=== PATIENT | male | born 1965 | race Caucasian/White ===

== ENCOUNTER 2024-11-04 08:00 | Outpatient (RCR) | payer BC, SELFPAY ==
[2024-10-21 08:25] VITALS: BP 117/55; PULSE 59; RESP 18; TEMP 36.1; BMI 32.1
--- NOTE | 2024-10-21 09:43 | PCM.WC.HP ---
History of Present Illness Date of Service: 10/21/24 Chief Complaint: Follow-up right ring finger appears infected History of Wound: 59-year-old white male with a history of concern of infection in his right fourth finger. He was working on remodeling a bathroom and received a small abrasion to the dorsal surface about 3 weeks prior to his first visit to his doctor's office so that would take him back to the end of July 2024 his first visit with his family doctor was 09/14/2024 he noticed an increase in redness pain and swelling he had been applying triple antibiotic ointment which had been effective there has been some improvement at that time and symptoms but still had some mild intermittent tenderness to the affected area and is concerned about infection he denied ever having any discharge and denies any associated fever. He followed up with his primary care doctor again on 10/08/2024 and at that time patient was still complaining of cellulitis to the right ring finger and it had been well over a month now and he and after he scraped it while remodeling it just was not getting any better so they were given Bactroban ointment which was effective but the last several weeks then it increased in redness he still denied any fever or pain and this was back and forth so the doctor started him on doxycycline twice a day for 10 days. He followed up again on 10/15/2024 and it also not significantly worsened either no cultures were ever obtained he never really had any drainage at that time but it has been 4 months and it is not any better so he decided to send him to the wound center. [facility] Home Medications ?Medication ?Instructions ?Recorded ?Last Taken ?Type hydrochlorothiazide 25 mg tablet 25 mg PO DAILY 10/21/24 Unknown History losartan 25 mg tablet (Cozaar) 25 mg PO DAILY 10/21/24 Unknown History metoprolol tartrate 25 mg tablet 25 mg PO BID 10/21/24 Unknown History simvastatin 10 mg tablet 10 mg PO QPM 10/21/24 Unknown History warfarin 2.5 mg tablet (Jantoven) 2.5 mg PO DAILY 10/21/24 Unknown History Social History Smoking Status: Never smoker ROS Constitutional Constitutional: Reports systems reviewed and no addt'l complaints, except as documented Eyes Eyes: Reports systems reviewed and no addt'l complaints, except as documented ENT HEENT: Reports systems reviewed and no addt'l complaints, except as documented Cardiovascular Cardiovascular: Reports systems reviewed and no addt'l complaints, except as documented Respiratory/Chest Respiratory/Chest: Reports systems reviewed and no addt'l complaints, except as documented Gastrointestinal Gastrointestinal: Reports systems reviewed and no addt'l complaints, except as documented Genitourinary Genitourinary: Reports systems reviewed and no addt'l complaints, except as documented Musculoskeletal Musculoskeletal: Reports systems reviewed and no addt'l complaints, except as documented Integumentary Integumentary: Reports wounds and other Details: Right ring finger 3 linear open areas with erythema around them also noted erythema on knuckles and lower half of dorsal hand. Neurologic Neurologic: Reports systems reviewed and no addt'l complaints, except as documented Psychiatric Psychiatric: Reports systems reviewed and no addt'l complaints, except as documented Endocrine Endocrinology: Reports systems reviewed and no addt'l complaints, except as documented Hematologic/Lymphatic Hematologic/Lymphatic: Reports systems reviewed and no addt'l complaints, except as documented Allergic/Immunologic Allergic/Immunologic: Reports systems reviewed and no addt'l complaints, except as documented Vital Signs Vital Signs Vital Signs: 10/21/24 08:25 Temperature 97 F L Temperature Source Temporal Pulse Rate 59 L Respiratory Rate 18 Blood Pressure 117/55 L Blood Pressure Mean 75 Blood Pressure Source Monitor Weight Weight: 250 lb 2.49 oz Body Mass Index (BMI) 32.1 Physical Exam Const alert, oriented x3 and no apparent distress General Appearance: cooperative, comfortable and well kempt Orientation / Consciousness: awake Exam Limitations: no limitations HEENT normocephalic Head and Scalp: normal to inspection Face and Sinus: normal facial exam Nose: external nose normal External Ear: external ears normal Eyes General Eye: normal appearance of both eyes Neck full ROM General: normal visual inspection Resp normal respiratory effort Effort and Inspection: able to speak in complete sentences Auscultation: clear to auscultation bilaterally Cardio regular rate Rate: regular rate Rhythm: regular rhythm Heart Sounds: S1 normal Bruits: Negative for carotid bruit GI normal to inspection, nondistended, normoactive bowel sounds Back/Spine normal ROM Extremity normal to inspection General Extremity: normal exam except as noted Skin Skin Narrative: 3 linear open small wounds on right ring finger with erythema around them. Erythema up into the lower half of right hand and knuckles dorsal side. Full range of motion able to make a fist. Has resistance to pressure on the right ring finger. Wounds appear superficial. Neuro oriented x3 Meningeal Signs: no meningeal signs Psych mental status grossly normal Appearance: grossly normal Attitude: calm Activity / Motor Behavior: appropriate eye contact Speech: normal speech Mood & Affect: euthymic mood Thought Process: normal thought process Thought Content: normal thought content Attention / Concentration: attention grossly intact Memory / Cognition: memory grossly intact Insight: insight good Judgement: judgement good Debridement Note Debridement Note Wound debrided: Right ring finger Type of Debridement: Excisional debridement Anesthesia Used: 5% Lidocaine Gel Depth: Down to and including healthy tissue and in the subcutaneous layer Percentage of wound debrided: 100 Instrument Used: 3mm curette Tissue Removed: Devitalized tissue and fibrin Severity: Limited To Skin Breakdown Amount of bleeding with debridement: Mild Bleeding Controlled with: Compression and gauze Patient tolerated procedure: Patient tolerated procedure well Post-Debridement Measurements and Additional Note: Post-Debridement Measurements/Treatment - Nurse 1 - General Ulcer Assessment Start: 10/21/24 08:23 Freq: Status: Active Protocol: [email or web address] Activity Type Activity Date Activity User E-sign Co-sign Detail Recorded Client Recorded Date Recorded By Document 10/21/24 08:25 DL [id number] 10/21/24 08:35 DL 10/21/24 08:25 - Today's Visit Information Type of service Initial Visit Arrival Mode Ambulatory Transfer Assistance None Patient Identification Verified (Name & Yes ) Patient Requires Transmission-Based No Precautions Height and Weight Height 6 ft 2 in Weight 250 lb 2.49 oz Weight in Pounds 250.2 lbs Weight Measurement Method Estimated by Patient Body Mass Index (BMI) 32.1 BMI Classification Obese Vital Signs Temperature (97.8 F-99.1 F) 97 F L Temperature Source Temporal Pulse Rate (60-100) 59 L Pulse Location Monitor Respiratory Rate (12-18) 18 Respiratory rate source Observation Blood Pressure (90/60-120/80) 117/55 L Blood Pressure Mean 75 Source Monitor Pain Scale: 0-10 Numeric Is Patient Pain Free? Yes Communication Assessment Preferred language Kyrgyz Able to Read Yes Able to Write Yes Communication Tools None Right Hearing Abillity Use of Hearing Aid Left Hearing Abillity Use of Hearing Aid Visual Assistive Devices Glasses Teaching Assessment Preferences Verbal,Written, Demonstration Barriers to Learning None Readiness To Learn Good Willingness to Engage in Self Management Med Activies Readiness to Engage in Self Management Med Activities Anxiety Level Calm Cooperation Cooperative Perception Coherent Interest in Health Problem Asks Questions Education Importance Acknowledges Need Does Patient Smoke tobacco or other No substances Smoking Status Never smoker Is Patient Diabetic No Functional Assessment Recent Decline in Ability to Perform Denies Any Declines 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 Bench Jeweler to contact place of adventism No WC - Nurse 1 - General Ulcer Measurement Start: 10/21/24 08:23 Freq: Status: Active Protocol: Activity Type Activity Date Activity User E-sign Co-sign Detail Recorded Client Recorded Date Recorded By Document 10/21/24 08:25 DL [id number] 10/21/24 08:35 DL 10/21/24 08:25 Wound Center Nurse 1 #1 R 3rd finger -Current Size (cm) - Length 0.5 -Current Size (cm) - Width 1.8 -Current Size (cm) - Depth 0.1 -Total Square Cm 0.90 -Photo Taken Yes -Exudate Amt None Present -Wound Margin Distinct, Outline Attached -Granulation Amt None Present (0 %) -Necrosis Amt Small (1-33%) -Necrotic Tissue Type Eschar -Structure Exposed N/A -Texture (Melly-wound Skin Appearance) Localized Edema ,Scarring -Moisture (Melly-wound Skin Appearance) No Abnormality -Color (Melly-wound Skin Appearance) Erythema -Temperature (Melly-wound Skin No Abnormality Appearance) (Pt Warm) -Tenderness on Palpation (Melly-wound No Skin Appearance) -Ulcer Cleansing Soap and Water -Foul Odor after Cleansing No -Anesthetic Used 5% Lidocaine Gel WC - Nurse 2 - General Ulcer CM Notes Start: 10/21/24 08:23 Freq: Status: Active Protocol: Activity Type Activity Date Activity User E-sign Co-sign Detail Recorded Client Recorded Date Recorded By Document 10/21/24 08:50 BMF [id number] 10/21/24 08:57 BMF 10/21/24 08:50 Wound Center Nurse 2 -Time 08:50 -Correct Patient Yes -Correct Side, Site, Position Yes -Correct Procedure Yes -Procedure Performed Yes -Type of Procedure Debridement -Clinical Debridement Subcutaneous -Tissue Removed Subcutaneous -Post Debridement (cm) - Length 0.3 -Post Debridement (cm) - Width 2 -Post Debridement (cm) - Depth 0.2 -Total Square (Post) (cm) 0.6 -Area of Debridement (cm) - Length 0.3 -Area of Debridement (cm) - Width 2 -Total Square (Area) (cm) 0.6 -Tunneling No -Undermining/Tunneling No -Circular Undermining No -Wound/Ulcer Outcome Not Healed -Ulcer Cleansing Rinsed/ Irrigated with Saline -Foul Odor after Cleansing No -Bioengineered Tissue No -Bleeding Controlled with Pressure -Treatment Response Procedure Tolerated Well -Debridement - Subq, 1st 20sq cm Yes Pain Scale: 0-10 Numeric Is Patient Pain Free? Yes - Nurse 3 - General Ulcer D/C NN Start: 10/21/24 08:23 Freq: Status: Active Protocol: Activity Type Activity Date Activity User E-sign Co-sign Detail Recorded Client Recorded Date Recorded By Document 10/21/24 09:09 BMF [id number] 10/21/24 09:09 BMF Edit Result 10/21/24 09:09 BMF (1) [id number] 10/21/24 09:09 BMF (1) #1 R 3rd finger - Promogran 1 => 2 10/21/24 09:09 Wound Care Center Nurse 3 #1 R 3rd finger -Ulcer Cleansing Rinsed/ Irrigated with Saline -Foul Odor after Cleansing No -Primary Dressing Applied NonAdherent Contact Layer, Promogran -Primary Dressing Covered/Secured with Dry Gauze -Other Covering secured w/ coban -Promogran 2 Treatment Response Procedure Tolerated Well Pain Scale: 0-10 Numeric Is Patient Pain Free? Yes - Visit Discharge Discharge Condition Stable Ambulatory Status Ambulatory Transportation Private Auto Assessment/Plan Assessment/Plan (1) H/O mechanical aortic valve replacement: CODE(S): Z95.2 - Presence of prosthetic heart valve (2) Infected abrasion of skin of right ring finger: CODE(S): S60.414A - Abrasion of right ring finger, initial encounter; L08.9 - Local infection of the skin and subcutaneous tissue, unspecified PLAN: Wash right hand with antibacterial soap and water apply Promogran to the open areas and Adaptic over top the wrap with gauze dressing daily Follow-up in 1 week Also get a hand x-ray Blood cultures An echocardiogram Will call with results next week If working outside in the ER put Coban over dressing to protect it. (3) Cellulitis of hand: CODE(S): L03.119 - Cellulitis of unspecified part of limb
--- NOTE | 2024-10-21 09:44 | RAD_ITS ---
PROCEDURE: HAND MIN 3 VIEWS 10/21/2024 REASON FOR EXAM: FB WOUND Nonhealing wound overlying the 4th digit. TECHNIQUE: 4 view(s) of the right hand COMPARISON: None FINDINGS: Bones: Unremarkable Joints: Normal alignment. Joint spaces preserved. No arthropathic features. Soft tissues: Minimal soft tissue swelling overlying the 4th digit. Other: RAD/Hand Min 3 Views IMPRESSION: Minimal soft tissue swelling overlying the 4th digit. Reading Location: [place] [id number]
--- NOTE | 2024-10-22 08:05 | WC ---
PHOTO 10/21/24 RIGHT 3RD FINGER
[2024-10-28 08:16] VITALS: BP 130/74; PULSE 55; RESP 18; TEMP 35.5; BMI 32.1
--- NOTE | 2024-10-28 08:35 | PN.PCM_ITS ---
History of Present Illness Date of Service: 10/28/24 Chief Complaint: Follow-up right ring finger appears infected History of Wound: 59-year-old white male with a history of concern of infection in his right fourth finger. He was working on remodeling a bathroom and received a small abrasion to the dorsal surface about 3 weeks prior to his first visit to his doctor's office so that would take him back to the end of July 2024 his first visit with his family doctor was 09/14/2024 he noticed an increase in redness pain and swelling he had been applying triple antibiotic ointment which had been effective there has been some improvement at that time and symptoms but still had some mild intermittent tenderness to the affected area and is concerned about infection he denied ever having any discharge and denies any associated fever. He followed up with his primary care doctor again on 10/08/2024 and at that time patient was still complaining of cellulitis to the right ring finger and it had been well over a month now and he and after he scraped it while remodeling it just was not getting any better so they were given Bactroban ointment which was effective but the last several weeks then it increased in redness he still denied any fever or pain and this was back and forth so the doctor started him on doxycycline twice a day for 10 days. He followed up again on 10/15/2024 and it also not significantly worsened either no cultures were ever obtained he never really had any drainage at that time but it has been 4 months and it is not any better so he decided to send him to the wound center. Progress of Wound: Wound looks about the same as last week except not as red and swollen. Patient is still using triple antibiotic underneath his Promogran and will think he understood that the Promogran is the medicine. So we will reiterate that he is to stop the triple antibiotic only use the medications that we give him. Still insist to get an echocardiogram and check his valves and patient so far everything's come back negative his cultures his chest x-ray his hand x-ray all look good. Subjective Subjective Patient is very happy with outcome so far Objective Data Objective Data Again the measurements are probably about the same he has not been using triple antibiotic that might be causing more redness to occur on the finger. Vital Signs: Vital Signs Temp Pulse Resp BP 96 F L 55 L 18 130/74 H 10/28/24 08:16 04/23/25 08:16 10/28/24 08:16 10/28/24 08:16 Weight: 250 lb 2.49 oz Body Mass Index (BMI) 32.1 Lab / Micro Data Attestation: I reviewed the patient's lab results. Micro: Microbiology 10/21/24 13:00 Blood Culture (Wb) - Anticubital Right Blood Culture - Final No growth in 5 days. 10/21/24 08:53 Wound - Right Hand Gram Stain - Final 10/21/24 08:53 Wound - Right Hand Wound Culture - Final No growth aerobically. 10/21/24 08:53 Wound - Right Hand Anaerobic Culture - Final No anaerobic bacteria isolated. Physical Exam Const alert, oriented x3 and no apparent distress General Appearance: cooperative, comfortable and well kempt Orientation / Consciousness: awake Exam Limitations: no limitations HEENT normocephalic Head and Scalp: normal to inspection Face and Sinus: normal facial exam Nose: external nose normal External Ear: external ears normal Eyes General Eye: normal appearance of both eyes Neck full ROM General: normal visual inspection Resp normal respiratory effort Effort and Inspection: able to speak in complete sentences Auscultation: clear to auscultation bilaterally Cardio regular rate Rate: regular rate Rhythm: regular rhythm Heart Sounds: S1 normal Bruits: Negative for carotid bruit GI normal to inspection, nondistended, normoactive bowel sounds Back/Spine normal ROM Extremity normal to inspection General Extremity: normal exam except as noted Skin Skin Narrative: 3 linear open small wounds on right ring finger with erythema around them. Erythema up into the lower half of right hand and knuckles dorsal side. Full range of motion able to make a fist. Has resistance to pressure on the right ring finger. Wounds appear superficial. Neuro oriented x3 Meningeal Signs: no meningeal signs Psych mental status grossly normal Appearance: grossly normal Attitude: calm Activity / Motor Behavior: appropriate eye contact Speech: normal speech Mood & Affect: euthymic mood Thought Process: normal thought process Thought Content: normal thought content Attention / Concentration: attention grossly intact Memory / Cognition: memory grossly intact Insight: insight good Judgement: judgement good Debridement Note Debridement Note Wound debrided: Right ring finger Type of Debridement: Excisional debridement Anesthesia Used: 5% Lidocaine Gel Depth: Down to and including healthy tissue and in the subcutaneous layer Percentage of wound debrided: 100 Instrument Used: 3mm curette Tissue Removed: Devitalized tissue and fibrin Severity: Limited To Skin Breakdown Amount of bleeding with debridement: Mild Bleeding Controlled with: Compression and gauze Patient tolerated procedure: Patient tolerated procedure well Post-Debridement Measurements and Additional Note: Post-Debridement Measurements/Treatment - Nurse 1 - General Ulcer Assessment Start: 10/21/24 08:23 Freq: Status: Active Protocol: WC.LOWEXT Activity Type Activity Date Activity User E-sign Co-sign Detail Recorded Client Recorded Date Recorded By Document 10/21/24 08:25 DL [id number] 10/21/24 08:35 DL Document 10/28/24 08:16 RB [id number] 10/28/24 08:18 RB 10/21/24 10/28/24 08:25 08:16 - Today's Visit Information Type of service Initial Visit Follow-up Visit (Physician/TRADE MARK EXAMINER ) Arrival Mode Ambulatory Ambulatory Transfer Assistance None None Patient Identification Verified (Name & Yes Yes ) Patient Requires Transmission-Based No No Precautions Height and Weight Height 6 ft 2 in Weight 250 lb 2.49 oz Weight in Pounds 250.2 lbs Weight Measurement Method Estimated by Patient Body Mass Index (BMI) 32.1 32.1 BMI Classification Obese Obese Vital Signs Temperature (97.8 F-99.1 F) 97 F L 96 F L Temperature Source Temporal Temporal Pulse Rate (60-100) 59 L 55 L Pulse Location Monitor Apical Respiratory Rate (12-18) 18 18 Respiratory rate source Observation Observation Blood Pressure (90/60-120/80) 117/55 L 130/74 H Blood Pressure Mean (mm Hg) 75 92 Source Monitor Monitor Position Semi-Fowlers Blood Pressure Location Left Arm History Since Last Visit- (Skip if this is Patient's initial visit) Have you changed medications since your No last visit? Any new allergies or adverse reactions No Had a fall/change in ADL's that may No increase risk of falls Signs or symptoms of abuse and/or No neglect since last visit Have you been in the hospital since your No last visit? Has dressing in place as prescribed Yes Has compression in place as prescribed N/A Has offloadiing in place as prescribed N/A Experienced any changes in pain level or No management Pain Scale: 0-10 Numeric Is Patient Pain Free? Yes Yes Communication Assessment Preferred language Palau[place] Able to Read Yes Able to Write Yes Communication Tools None Right Hearing Abillity Use of Hearing Aid Left Hearing Abillity Use of Hearing Aid Visual Assistive Devices Glasses Teaching Assessment Preferences Verbal,Written, Demonstration Barriers to Learning None Readiness To Learn Good Willingness to Engage in Self Management Med Activies Readiness to Engage in Self Management Med Activities Anxiety Level Calm Cooperation Cooperative Perception Coherent Interest in Health Problem Asks Questions Education Importance Acknowledges Need Does Patient Smoke tobacco or other No substances Smoking Status Never smoker Is Patient Diabetic No Functional Assessment Recent Decline in Ability to Perform Denies Any Declines 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 Electronic Science Teacher to contact place of pentecostal No WC - Nurse 1 - General Ulcer Measurement Start: 10/21/24 08:23 Freq: Status: Active Protocol: Activity Type Activity Date Activity User E-sign Co-sign Detail Recorded Client Recorded Date Recorded By Document 10/21/24 08:25 DL [id number] 10/21/24 08:35 DL Document 10/28/24 08:16 RB [id number] 10/28/24 08:18 RB 10/21/24 10/28/24 08:25 08:16 Wound Center Nurse 1 #1 R 3rd finger -Combined with other wound No -Current Size (cm) - Length 0.5 0.1 -Current Size (cm) - Width 1.8 0.1 -Current Size (cm) - Depth 0.1 0.1 -Total Square Cm 0.90 0.01 -Photo Taken Yes Yes -Tunneling No -Undermining/Tunneling No -Circular Undermining No -Exudate Amt None Present None Present -Wound Margin Distinct, Distinct, Outline Outline Attached Attached -Granulation Amt None Present (0 Large (67-100%) %) -Granulation Quality [place]imas -Slough/Fibrin Yes -Necrosis Amt Small (1-33%) Small (1-33%) -Necrotic Tissue Type Eschar Adherent Slough -Structure Exposed N/A N/A -Texture (Melly-wound Skin Appearance) Localized Edema Not Assessed, ,Scarring Scarring -Moisture (Melly-wound Skin Appearance) No Abnormality Assessed -Color (Melly-wound Skin Appearance) Erythema Assessed -Temperature (Melly-wound Skin No Abnormality No Abnormality Appearance) (Pt Warm) (Pt Warm) -Tenderness on Palpation (Melly-wound No No Skin Appearance) -Ulcer Cleansing Soap and Water Wound Cleanser -Foul Odor after Cleansing No No -Anesthetic Used 5% Lidocaine 5% Lidocaine Gel Gel WC - Nurse 2 - General Ulcer CM Notes Start: 10/21/24 08:23 Freq: Status: Active Protocol: Activity Type Activity Date Activity User E-sign Co-sign Detail Recorded Client Recorded Date Recorded By Document 10/21/24 08:50 BMF [id number] 10/21/24 08:57 BMF Document 10/28/24 08:23 BMF [id number] 10/28/24 08:27 BMF 10/21/24 10/28/24 08:50 08:23 Wound Center Nurse 2 #1 R 3rd finger -Time 08:50 08:24 -Correct Patient Yes Yes -Correct Side, Site, Position Yes Yes -Correct Procedure Yes Yes -Procedure Performed Yes Yes -Type of Procedure Debridement Debridement -Clinical Debridement Subcutaneous Subcutaneous -Tissue Removed Subcutaneous Subcutaneous -Post Debridement (cm) - Length 0.3 0.2 -Post Debridement (cm) - Width 2 1.7 -Post Debridement (cm) - Depth 0.2 0.1 -Total Square (Post) (cm) 0.6 0.34 -Area of Debridement (cm) - Length 0.3 0.2 -Area of Debridement (cm) - Width 2 1.7 -Total Square (Area) (cm) 0.6 0.34 -Tunneling No No -Undermining/Tunneling No No -Circular Undermining No No -Wound/Ulcer Outcome Not Healed Not Healed -Ulcer Cleansing Rinsed/ Rinsed/ Irrigated with Irrigated with Saline Saline -Foul Odor after Cleansing No No -Bioengineered Tissue No No -Bleeding Controlled with Pressure Pressure -Treatment Response Procedure Procedure Tolerated Well Tolerated Well -Debridement - Subq, 1st 20sq cm Yes Yes Pain Scale: 0-10 Numeric Is Patient Pain Free? Yes Yes WC - Nurse 3 - General Ulcer D/C NN Start: 10/21/24 08:23 Freq: Status: Active Protocol: Activity Type Activity Date Activity User E-sign Co-sign Detail Recorded Client Recorded Date Recorded By Document 10/21/24 09:09 BMF [id number] 10/21/24 09:09 BMF Edit Result 10/21/24 09:09 BM (1) [id number] 10/21/24 09:09 BMF (1) #1 R 3rd finger - Promogran 1 => 2 10/21/24 09:09 Wound Care Center Nurse 3 #1 R 3rd finger -Ulcer Cleansing Rinsed/ Irrigated with Saline -Foul Odor after Cleansing No -Primary Dressing Applied NonAdherent Contact Layer, Promogran -Primary Dressing Covered/Secured with Dry Gauze -Other Covering secured w/ coban -Promogran 2 Treatment Response Procedure Tolerated Well Pain Scale: 0-10 Numeric Is Patient Pain Free? Yes WC - Visit Discharge Discharge Condition Stable Ambulatory Status Ambulatory Transportation Private Auto Assessment/Plan Assessment/Plan (1) H/O mechanical aortic valve replacement: CODE(S): Z95.2 - Presence of prosthetic heart valve (2) Infected abrasion of skin of right ring finger: CODE(S): S60.414A - Abrasion of right ring finger, initial encounter; L08.9 - Local infection of the skin and subcutaneous tissue, unspecified PLAN: Wash right hand with antibacterial soap and water apply Promogran to the open areas and Adaptic over top the wrap with gauze dressing daily Follow-up in 1 week An echocardiogram Will call with results next week If working outside in the yard or at work put Coban over dressing to protect it. (3) Cellulitis of hand: CODE(S): L03.119 - Cellulitis of unspecified part of limb
--- NOTE | 2024-10-29 08:52 | WC ---
PHOTO 10/28/24 RIGHT 3RD FINGER
[2024-11-04 08:34] VITALS: BP 140/61; PULSE 60; RESP 18; TEMP 36.4; BMI 32.1
--- NOTE | 2024-11-04 09:31 | PCM.WC.PN ---
History of Present Illness Date of Service: 11/04/24 Chief Complaint: Follow-up right ring finger appears infected History of Wound: 59-year-old white male with a history of concern of infection in his right fourth finger. He was working on remodeling a bathroom and received a small abrasion to the dorsal surface about 3 weeks prior to his first visit to his doctor's office so that would take him back to the end of July 2024 his first visit with his family doctor was 09/14/2024 he noticed an increase in redness pain and swelling he had been applying triple antibiotic ointment which had been effective there has been some improvement at that time and symptoms but still had some mild intermittent tenderness to the affected area and is concerned about infection he denied ever having any discharge and denies any associated fever. He followed up with his primary care doctor again on 10/08/2024 and at that time patient was still complaining of cellulitis to the right ring finger and it had been well over a month now and he and after he scraped it while remodeling it just was not getting any better so they were given Bactroban ointment which was effective but the last several weeks then it increased in redness he still denied any fever or pain and this was back and forth so the doctor started him on doxycycline twice a day for 10 days. He followed up again on 10/15/2024 and it also not significantly worsened either no cultures were ever obtained he never really had any drainage at that time but it has been 4 months and it is not any better so he decided to send him to the wound center. Progress of Wound: The wound is closed and healed but he is now developed a reddened area on the inner aspect lateral side of the same finger. Swelling is down but it still looks a little erythematous and there. Nothing is open to culture so organ to do a dry dressing for the next week keep it covered continuously and we will follow-up with him next week and see if that blisters or changes are goes away on its own. Subjective Subjective Patient is okay with plan Objective Data Objective Data Again the healed areas that we have been working on her are doing well still slightly erythematous but the swelling is down but he has now developed like a area lateral on the inner aspect of the finger of redness and so organ to keep an eye on it for another week and see what happens with that with just a dry dressing. Vital Signs: Vital Signs Temp Pulse Resp BP 97.5 F L 60 18 140/61 H 11/04/24 08:34 11/04/24 08:34 11/04/24 08:34 11/04/24 08:34 Weight: 250 lb 2.49 oz Body Mass Index (BMI) 32.1 Lab / Micro Data Attestation: I reviewed the patient's lab results. Micro: Microbiology 10/21/24 13:00 Blood Culture (Wb) - Anticubital Right Blood Culture - Final No growth in 5 days. 10/21/24 08:53 Wound - Right Hand Gram Stain - Final 10/21/24 08:53 Wound - Right Hand Wound Culture - Final No growth aerobically. 10/21/24 08:53 Wound - Right Hand Anaerobic Culture - Final No anaerobic bacteria isolated. Physical Exam Const alert, oriented x3 and no apparent distress General Appearance: cooperative, comfortable and well kempt Orientation / Consciousness: awake Exam Limitations: no limitations HEENT normocephalic Head and Scalp: normal to inspection Face and Sinus: normal facial exam Nose: external nose normal External Ear: external ears normal Eyes General Eye: normal appearance of both eyes Neck full ROM General: normal visual inspection Resp normal respiratory effort Effort and Inspection: able to speak in complete sentences Auscultation: clear to auscultation bilaterally Cardio regular rate Rate: regular rate Rhythm: regular rhythm Heart Sounds: S1 normal Bruits: Negative for carotid bruit GI normal to inspection, nondistended, normoactive bowel sounds Back/Spine normal ROM Extremity normal to inspection General Extremity: normal exam except as noted Skin Skin Narrative: 3 linear open small wounds on right ring finger with erythema around them. Erythema up into the lower half of right hand and knuckles dorsal side. Full range of motion able to make a fist. Has resistance to pressure on the right ring finger. Wounds appear superficial. Neuro oriented x3 Meningeal Signs: no meningeal signs Psych mental status grossly normal Appearance: grossly normal Attitude: calm Activity / Motor Behavior: appropriate eye contact Speech: normal speech Mood & Affect: euthymic mood Thought Process: normal thought process Thought Content: normal thought content Attention / Concentration: attention grossly intact Memory / Cognition: memory grossly intact Insight: insight good Judgement: judgement good Debridement Note Debridement Note No debridement was completed: No debridement was completed today Post-Debridement Measurements and Additional Note: Post-Debridement Measurements/Treatment WC - Nurse 1 - General Ulcer Assessment Start: 10/21/24 08:23 Freq: Status: Active Protocol: KIEL Activity Type Activity Date Activity User E-sign Co-sign Detail Recorded Client Recorded Date Recorded By Document 10/21/24 08:25 DL [id number] 10/21/24 08:35 DL Document 10/28/24 08:16 RB [id number] 10/28/24 08:18 RB Document 11/04/24 08:34 BMF [id number] 11/04/24 08:36 BMF 10/21/24 10/28/24 11/04/24 08:25 08:16 08:34 WC - Today's Visit Information Type of service Initial Visit Follow-up Visit Follow-up Visit (Physician/PATIENT CASE MANAGER (Physician/PATIENT CASE MANAGER ) ) Arrival Mode Ambulatory Ambulatory Ambulatory Transfer Assistance None None None Patient Identification Verified (Name & Yes Yes Yes ) Patient Requires Transmission-Based No No No Precautions Height and Weight Height 6 ft 2 in Weight 250 lb 2.49 oz Weight in Pounds 250.2 lbs Weight Measurement Method Estimated by Patient Body Mass Index (BMI) 32.1 32.1 32.1 BMI Classification Obese Obese Obese Vital Signs Temperature (97.8 F-99.1 F) 97 F L 96 F L 97.5 F L Temperature Source Temporal Temporal Temporal Pulse Rate (60-100) 59 L 55 L 60 Pulse Location Monitor Apical Monitor Respiratory Rate (12-18) 18 18 18 Respiratory rate source Observation Observation Observation Blood Pressure (90/60-120/80) 117/55 L 130/74 H 140/61 H Blood Pressure Mean (mm Hg) 75 92 87 Source Monitor Monitor Monitor Position Semi-Fowlers Semi-Fowlers Blood Pressure Location Left Arm Right Arm History Since Last Visit- (Skip if this is Patient's initial visit) Have you changed medications since your No No last visit? Any new allergies or adverse reactions No No Had a fall/change in ADL's that may No No increase risk of falls Signs or symptoms of abuse and/or No No neglect since last visit Have you been in the hospital since your No No last visit? Has dressing in place as prescribed Yes Yes Has compression in place as prescribed N/A N/A Has offloadiing in place as prescribed N/A N/A Experienced any changes in pain level or No No management Pain Scale: 0-10 Numeric Is Patient Pain Free? Yes Yes No right hand -Description Aching -Intensity 5 -Pain Behavior Guarding, Irritability -Pain Aggravating Factors ADL's -Alleviating Factors/Interventions Medication -Effectiveness of Alleviating Factor/ Moderately Intervention effective Communication Assessment Preferred language Persian Able to Read Yes Able to Write Yes Communication Tools None Right Hearing Abillity Use of Hearing Aid Left Hearing Abillity Use of Hearing Aid Visual Assistive Devices Glasses Teaching Assessment Preferences Verbal,Written, Demonstration Barriers to Learning None Readiness To Learn Good Willingness to Engage in Self Management Med Activies Readiness to Engage in Self Management Med Activities Anxiety Level Calm Cooperation Cooperative Perception Coherent Interest in Health Problem Asks Questions Education Importance Acknowledges Need Does Patient Smoke tobacco or other No substances Smoking Status Never smoker Is Patient Diabetic No Functional Assessment Recent Decline in Ability to Perform Denies Any Declines Culture/Shinto/Sports Book Server Cultural/Shinto Needs that may affect No Treatment Plan Would you allow our hospital rn postpartum to No meet you for the purpose of spiritual/ emotional support? Sports Book Server to contact place of [facility] No WC - Nurse 1 - General Ulcer Measurement Start: 10/21/24 08:23 Freq: Status: Active Protocol: Activity Type Activity Date Activity User E-sign Co-sign Detail Recorded Client Recorded Date Recorded By Document 10/21/24 08:25 DL [id number] 10/21/24 08:35 DL Document 10/28/24 08:16 RB [id number] 10/28/24 08:18 RB Document 11/04/24 08:34 BM [id number] 11/04/24 08:36 BMF 10/21/24 10/28/24 11/04/24 08:25 08:16 08:34 Wound Center Nurse 1 #1 R 3rd finger -Combined with other wound No No -Current Size (cm) - Length 0.5 0.1 0.1 -Current Size (cm) - Width 1.8 0.1 0.1 -Current Size (cm) - Depth 0.1 0.1 0.1 -Total Square Cm 0.90 0.01 0.01 -Photo Taken Yes Yes Yes -Tunneling No No -Undermining/Tunneling No No -Circular Undermining No No -Exudate Amt None Present None Present Small -Exudate Type Sanguineous -Wound Margin Distinct, Distinct, Distinct, Outline Outline Outline Attached Attached Attached -Granulation Amt None Present (0 Large (67-100%) Large (67-100%) %) -Granulation Quality New Falcon New Falcon -Slough/Fibrin Yes Yes -Necrosis Amt Small (1-33%) Small (1-33%) Small (1-33%) -Necrotic Tissue Type Eschar Adherent Slough Adherent Slough -Structure Exposed N/A N/A N/A -Texture (Melly-wound Skin Appearance) Localized Edema Not Assessed, Assessed, ,Scarring Scarring Scarring -Moisture (Melly-wound Skin Appearance) No Abnormality Assessed Assessed -Color (Melly-wound Skin Appearance) Erythema Assessed Assessed -Temperature (Melly-wound Skin No Abnormality No Abnormality No Abnormality Appearance) (Pt Warm) (Pt Warm) (Pt Warm) -Tenderness on Palpation (Melly-wound No No No Skin Appearance) -Ulcer Cleansing Soap and Water Wound Cleanser Rinsed/ Irrigated with Saline -Foul Odor after Cleansing No No No -Anesthetic Used 5% Lidocaine 5% Lidocaine 5% Lidocaine Gel Gel Gel WC - Nurse 2 - General Ulcer CM Notes Start: 10/21/24 08:23 Freq: Status: Active Protocol: Activity Type Activity Date Activity User E-sign Co-sign Detail Recorded Client Recorded Date Recorded By Document 10/21/24 08:50 [facility] [id number] 10/21/24 08:57 [facility] Document 10/28/24 08:23 [facility] [id number] 10/28/24 08:27 BM Document 11/04/24 08:35 [facility] [id number] 11/04/24 08:44 [facility] 10/21/24 10/28/24 11/04/24 08:50 08:23 08:35 Wound Center Nurse 2 #1 R 3rd finger -Time 08:50 08:24 08:40 -Correct Patient Yes Yes -Correct Side, Site, Position Yes Yes -Correct Procedure Yes Yes -Procedure Performed Yes Yes No -Type of Procedure Debridement Debridement -Clinical Debridement Subcutaneous Subcutaneous -Tissue Removed Subcutaneous Subcutaneous -Post Debridement (cm) - Length 0.3 0.2 0.1 -Post Debridement (cm) - Width 2 1.7 0.1 -Post Debridement (cm) - Depth 0.2 0.1 0.1 -Total Square (Post) (cm) 0.6 0.34 0.01 -Area of Debridement (cm) - Length 0.3 0.2 0.1 -Area of Debridement (cm) - Width 2 1.7 0.1 -Total Square (Area) (cm) 0.6 0.34 0.01 -Tunneling No No No -Undermining/Tunneling No No No -Circular Undermining No No No -Wound/Ulcer Outcome Not Healed Not Healed Not Healed -Ulcer Cleansing Rinsed/ Rinsed/ Irrigated with Irrigated with Saline Saline -Foul Odor after Cleansing No No -Bioengineered Tissue No No -Bleeding Controlled with Pressure Pressure NA -Treatment Response Procedure Procedure Tolerated Well Tolerated Well -Debridement - Subq, 1st 20sq cm Yes Yes Pain Scale: 0-10 Numeric Is Patient Pain Free? Yes Yes Yes - Nurse 3 - General Ulcer D/C NN Start: 10/21/24 08:23 Freq: Status: Active Protocol: Activity Type Activity Date Activity User E-sign Co-sign Detail Recorded Client Recorded Date Recorded By Document 10/21/24 09:09 BMF [id number] 10/21/24 09:09 BMF Edit Result 10/21/24 09:09 BMF (1) [id number] 10/21/24 09:09 BMF Document 10/28/24 08:35 RB [id number] 10/28/24 08:40 RB Document 11/04/24 08:53 MT [id number] 11/04/24 08:55 MT (1) #1 R 3rd finger - Promogran 1 => 2 10/21/24 10/28/24 11/04/24 09:09 08:35 08:53 Wound Care Center Nurse 3 #1 R 3rd finger -Ulcer Cleansing Rinsed/ Wound Cleanser Irrigated with Saline -Foul Odor after Cleansing No No -Negative Pressure Wound Therapy N/A -Primary Dressing Applied NonAdherent NonAdherent Contact Layer, Contact Layer, Promogran Promogran Audra Matter -Other Dressing coban secure with coban -Primary Dressing Covered/Secured with Dry Gauze Dry Gauze & Dry Gauze,Dry Roll Gauze, Gauze & Roll Secured with Gauze Tape -Other Covering secured w/ coban -Promogran 2 -Promogran Audra Matter 1 Treatment Response Procedure Procedure Tolerated Well Tolerated Well Pain Scale: 0-10 Numeric Is Patient Pain Free? Yes Yes Yes - Visit Discharge Discharge Condition Stable Stable Stable Ambulatory Status Ambulatory Ambulatory Ambulatory Transportation Private Auto Private Auto Private Auto Medication Reconcilliation completed & No No provided to patient/care provider Clinical Summary of Care Provided Yes Yes Assessment/Plan Assessment/Plan (1) H/O mechanical aortic valve replacement: CODE(S): Z95.2 - Presence of prosthetic heart valve (2) Infected abrasion of skin of right ring finger: CODE(S): S60.414A - Abrasion of right ring finger, initial encounter; L08.9 - Local infection of the skin and subcutaneous tissue, unspecified PLAN: This time wash the whole hand and finger with Hibiclens soap 2-3 times a day and then redress it with a dry dressing on the area of the ring finger keeping it covered continuously follow-up in 1 week (3) Cellulitis of hand: CODE(S): L03.119 - Cellulitis of unspecified part of limb
--- NOTE | 2024-11-04 13:30 | WC ---
PHOTO 11/04/24 RIGHT THIRD FINGER
== END 2024-11-04 23:59 | disposition home or self-care (01) ==
LOC: WC 08:00
PROVIDERS: PCP Nurse Practitioner Family; Referring Provider Nurse Practitioner; Visit Provider Nurse Practitioner
DX: L03.011 Cellulitis of right finger (principal); Z79.01 Long term (current) use of anticoagulants; S60.41 Abrasion of fingers; Z95.2 Presence of prosthetic heart valve; X58.XXXS Exposure to other specified factors, sequela; Y93.89 Activity, other specified
CPT/HCPCS: 11042; 36415; 73130; 87040; 87070; 87075; 87205; 99203; 99213; G0463

== ENCOUNTER → 2024-11-16 | Outpatient (CLI) | payer BC, SELFPAY ==
--- NOTE | 2024-11-16 07:57 | ECHOD_ITS ---
Reason For Study Reason For Study: INFECTED HAND, AVR Procedure This was a 2D Doppler, Color Flow transthoracic echocardiogram. Exam performed in department. Left Ventricle Normal LV size. Left ventricular systolic function is normal. The left ventricular ejection fraction is 65 %. No regional wall motion abnormalities noted. Right Ventricle Normal RV size. Normal systolic function. Atria The left atrium is mildly enlarged. Normal right atrium. Mitral Valve Bileaflet diffuse mitral valve thickening. Tricuspid Valve Normal tricuspid valve. Mild tricuspid valve insufficiency. Pulmonary artery systolic pressure is 24 mmHg. Aortic Valve Peak aortic valve gradient 13 mmHg. Mean aortic valve gradient 7 mmHg. Bioprosthetic aortic valve. Great Vessels Normal aortic root. The pulmonary artery is normal size. Inferior vena cava collapse with respiration. Pericardium/Pleural No pericardial effusion. MMode/2D Measurements & Calculations LVIDd: 5.5 cm IVSd: 1.1 cm LVOT diam: 2.0 cm LVIDs: 3.1 cm LVPWd: 1.1 cm LVOT area: 3.1 cm2 RVDd: 4.2 cm FS: 43.1 % Ao root diam: 3.5 cm LAV(MOD-bp): 84.1 ml LVAd ap4: 38.6 cm2 LAV(MOD-bp) Indexed: 35.2 ml/m2 LVLd ap4: 8.8 cm LAV(MOD-sp2): 79.9 ml EDV(MOD-sp4): 139.6 ml LAV(MOD-sp4): 85.3 ml EDV(sp4-el): 143.4 ml LVAs ap4: 19.4 cm2 LVLs ap4: 6.9 cm ESV(MOD-sp4): 47.7 ml ESV(sp4-el): 45.9 ml EF(MOD-sp4): 65.8 % EF(sp4-el): 68.0 % SV(MOD-sp4): 91.9 ml SV(sp4-el): 97.5 ml LA A4 area: 24.4 cm2 SI(MOD-sp4): 38.5 ml/m2 LA dimension(2D): 3.4 cm RA A4 area: 22.3 cm2 TAPSE: 2.0 cm Time Measurements MV dec time: 0.19 sec Doppler Measurements & Calculations MV E max mike: 90.5 cm/sec Lat Peak E' Mike: 11.8 cm/sec Med Peak E' Mike: 11.2 cm/sec MV A max mike: 48.1 cm/sec E/E' lat: 7.7 E/E' med: 8.1 MV E/A: 1.9 Ao V2 max: 182.0 cm/sec LV V1 max: 172.6 cm/sec SV(LVOT): 118.6 ml Ao max P.2 mmHg LV V1 max P.9 mmHg Ao V2 mean: 131.6 cm/sec LV V1 mean P.2 mmHg Ao mean P.6 mmHg LV V1 mean: 114.1 cm/sec Ao V2 VTI: 40.5 cm LV V1 VTI: 37.8 cm AV (velocity ratio): 0.94 TALIA(I,D): 2.9 cm2 TALIA(V,D): 3.0 cm2 PA V2 max: 149.0 cm/sec TR max mike: 225.3 cm/sec TR max P.3 mmHg ECHO/Echo Complete Interpretation Summary Normal LV size. Left ventricular systolic function is normal. The left ventricular ejection fraction is 65 %. Bioprosthetic aortic valve. Mean aortic valve gradient 7 mmHg. Ordering Physician: Kaity Khan Referring Physician: YUSUF JAMES Performed By: Leilani Birmingham RDCS
== END | disposition home or self-care (01) ==
LOC: CVS 07:53
PROVIDERS: PCP Nurse Practitioner Family; Referring Provider Nurse Practitioner; Visit Provider Nurse Practitioner
DX: I36.1 Nonrheumatic tricuspid (valve) insufficiency (principal)
CPT/HCPCS: 93306

== ENCOUNTER 2024-12-02 07:50 | Outpatient (RCR) | payer BC, SELFPAY ==
[2024-11-05 00:23] VITALS: BP 140/61; PULSE 60; RESP 18; TEMP 36.4; BMI 32.1
[2024-12-02 08:08] VITALS: BP 122/63; PULSE 54; RESP 15; TEMP 36.1; BMI 32.1
--- NOTE | 2024-12-02 10:53 | PCM.WC.PN ---
History of Present Illness Date of Service: 12/02/24 Chief Complaint: Follow-up right ring finger and nail third finger blisters on the tips of his fingers History of Wound: 59-year-old white male with a history of concern of infection in his right fourth finger. He was working on remodeling a bathroom and received a small abrasion to the dorsal surface about 3 weeks prior to his first visit to his doctor's office so that would take him back to the end of July 2024. Alexander's last visit was 11/04/2024 and we pretty much I closed him up he was still having some issues with his ring finger but now they are all closed now he has different areas that on the same finger and his third finger that blister and get red and are painful if hit or palpated really hard. Again nothing is open at this point to consider wounds but consideration is that he might be developing some herpetic areas on his fingertips from the original trauma. So we are going to start him on some oral antiviral and then maybe put him on suppressive therapy for a year and see if that works he can follow-up in a month and see if that improves his fingers at all. He can continue using the Audra on certain areas that seems to work better than just the antibiotic ointment he still washing his hands with the Hibiclens also. Progress of Wound: So today he has several small red erythematous dots on his 3rd and 4th finger. No open wounds to do dressings on but it looks more like a viral outbreak that occurs. Subjective Subjective Patient was agreeable to plan and will be welcome to follow-up in 1 month Objective Data Objective Data Again the ring fingers are healed so there is no blisters or open wounds on that now he has some macular papular areas on his ring and third finger only about 2 or 3 but they seem to be coming out on other parts of his tips of his fingers also thumb and other parts but always on the same hand that was originally injured. We also went over his echocardiogram and we told him that was all good normal and that he did has no issues with his heart with all this problems that he has had with the infections. Vital Signs: Vital Signs Temp Pulse Resp BP 97 F L 54 L 15 122/63 H 12/02/24 08:08 12/02/24 08:08 12/02/24 08:08 12/02/24 08:08 Weight: 250 lb 2.49 oz Body Mass Index (BMI) 32.1 Lab / Micro Data Attestation: I reviewed the patient's lab results. Physical Exam Const alert, oriented x3 and no apparent distress General Appearance: cooperative, comfortable and well kempt Orientation / Consciousness: awake Exam Limitations: no limitations HEENT normocephalic Head and Scalp: normal to inspection Face and Sinus: normal facial exam Nose: external nose normal External Ear: external ears normal Eyes General Eye: normal appearance of both eyes Neck full ROM General: normal visual inspection Resp normal respiratory effort Effort and Inspection: able to speak in complete sentences Auscultation: clear to auscultation bilaterally Cardio regular rate Rate: regular rate Rhythm: regular rhythm Heart Sounds: S1 normal Bruits: Negative for carotid bruit GI normal to inspection, nondistended, normoactive bowel sounds Back/Spine normal ROM Extremity normal to inspection General Extremity: normal exam except as noted Skin Skin Narrative: Macular papular area on the right hand 4th and 3rd finger General Skin Exam: no breakdown and erythema Lesions: lesion noted Neuro oriented x3 Meningeal Signs: no meningeal signs Psych mental status grossly normal Appearance: grossly normal Attitude: calm Activity / Motor Behavior: appropriate eye contact Speech: normal speech Mood & Affect: euthymic mood Thought Process: normal thought process Thought Content: normal thought content Attention / Concentration: attention grossly intact Memory / Cognition: memory grossly intact Insight: insight good Judgement: judgement good Debridement Note Debridement Note No debridement was completed: No debridement was completed today Post-Debridement Measurements and Additional Note: Post-Debridement Measurements/Treatment - Nurse 1 - General Ulcer Assessment Start: 12/02/24 08:08 Freq: Status: Active Protocol: KIEL Activity Type Activity Date Activity User E-sign Co-sign Detail Recorded Client Recorded Date Recorded By Document 12/02/24 08:08 ML [id number] 12/02/24 08:10 ML 12/02/24 08:08 - Today's Visit Information Type of service 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 ) Arrival Mode Ambulatory Transfer Assistance None Patient Identification Verified (Name & Yes ) Patient Requires Transmission-Based No Precautions Height and Weight Body Mass Index (BMI) 32.1 BMI Classification Obese Vital Signs Temperature (97.8 F-99.1 F) 97 F L Temperature Source Temporal Pulse Rate (60-100) 54 L Pulse Location Monitor Respiratory Rate (12-18) 15 Respiratory rate source Observation Blood Pressure (90/60-120/80) 122/63 H Blood Pressure Mean (mm Hg) 82 Source Monitor Position Sitting Blood Pressure Location Right Arm History Since Last Visit- (Skip if this is Patient's initial visit) Have you changed medications since your No last visit? Any new allergies or adverse reactions No Had a fall/change in ADL's that may No increase risk of falls Signs or symptoms of abuse and/or No neglect since last visit Have you been in the hospital since your No last visit? Has dressing in place as prescribed No Has compression in place as prescribed N/A Has offloadiing in place as prescribed N/A Experienced any changes in pain level or No management Pain Scale: 0-10 Numeric Is Patient Pain Free? Yes WC - Nurse 1 - General Ulcer Measurement Start: 12/02/24 08:08 Freq: Status: Active Protocol: Activity Type Activity Date Activity User E-sign Co-sign Detail Recorded Client Recorded Date Recorded By Document 12/02/24 08:08 [id number] 12/02/24 08:10 12/02/24 08:08 Wound Center Nurse 1 #1 R 3rd finger -Current Size (cm) - Length 0.1 -Current Size (cm) - Width 0.1 -Current Size (cm) - Depth 0.1 -Total Square Cm 0.01 -Granulation Amt None Present (0 %) -Slough/Fibrin No -Necrosis Amt None Present (0 %) -Texture (Melly-wound Skin Appearance) Assessed -Moisture (Melly-wound Skin Appearance) Assessed -Color (Melly-wound Skin Appearance) Assessed -Temperature (Melly-wound Skin No Abnormality Appearance) (Pt Warm) -Tenderness on Palpation (Melly-wound No Skin Appearance) WC - Nurse 2 - General Ulcer CM Notes Start: 12/02/24 08:08 Freq: Status: Active Protocol: Activity Type Activity Date Activity User E-sign Co-sign Detail Recorded Client Recorded Date Recorded By Document 12/02/24 08:18 [facility] [id number] 12/02/24 08:29 BM 12/02/24 08:18 Wound Center Nurse 2 #2- R 4TH FINGER -Time 08:20 -Post Debridement (cm) - Length 0 -Post Debridement (cm) - Width 0 -Post Debridement (cm) - Depth 0 -Total Square (Post) (cm) 0 -Area of Debridement (cm) - Length 0 -Area of Debridement (cm) - Width 0 -Total Square (Area) (cm) 0 -Wound/Ulcer Outcome Healed- Epithelialized -Bleeding Controlled with NA #1 R 3rd finger -Time 08:18 -Procedure Performed No -Post Debridement (cm) - Length 0 -Post Debridement (cm) - Width 0 -Post Debridement (cm) - Depth 0 -Total Square (Post) (cm) 0 -Area of Debridement (cm) - Length 0 -Area of Debridement (cm) - Width 0 -Total Square (Area) (cm) 0 -Wound/Ulcer Outcome Healed- Epithelialized Pain Scale: 0-10 Numeric Is Patient Pain Free? Yes - Nurse 3 - General Ulcer D/C NN Start: 12/02/24 08:08 Freq: Status: Active Protocol: Activity Type Activity Date Activity User E-sign Co-sign Detail Recorded Client Recorded Date Recorded By Document 12/02/24 08:29 [facility] [id number] 12/02/24 08:32 [facility] 12/02/24 08:29 Is Patient Pain Free? Yes - Visit Discharge Discharge Condition Stable Ambulatory Status Ambulatory Transportation Private Auto Assessment/Plan Assessment/Plan (1) H/O mechanical aortic valve replacement: CODE(S): Z95.2 - Presence of prosthetic heart valve PLAN: Echocardiogram done it was all normal patient was discussed and agreeable (2) Herpetic lesions: CODE(S): B00.9 - Herpesviral infection, unspecified PLAN: Start valacyclovir 1 g 3 times daily x 7 days then 1 g daily for 30 days with 12 refills for suppressive therapy
== END 2024-12-05 23:59 | disposition home or self-care (01) ==
LOC: WC 07:50
PROVIDERS: PCP Nurse Practitioner Family; Referring Provider Nurse Practitioner; Visit Provider Nurse Practitioner
DX: B00.9 Herpesviral infection, unspecified (principal); S60.424 Blister (nonthermal) of right ring finger; S60.42 Blister (nonthermal) of fingers; X58.XXXS Exposure to other specified factors, sequela; Z79.01 Long term (current) use of anticoagulants; Z79.899 Other long term (current) drug therapy; Z95.2 Presence of prosthetic heart valve
CPT/HCPCS: 99213; G0463

== ENCOUNTER 2025-01-06 07:57 | Outpatient (RCR) | payer BC, SELFPAY ==
[2024-12-06 00:14] VITALS: BP 122/63; PULSE 54; RESP 15; TEMP 36.1; BMI 32.1
[2025-01-06 08:11] VITALS: BP 114/72; PULSE 57; RESP 18; TEMP 35.9; BMI 32.1
--- NOTE | 2025-01-06 10:14 | PCM.WC.PN ---
History of Present Illness Date of Service: 01/06/25 Chief Complaint: Follow-up right ring finger and nail third finger blisters on the tips of his fingers History of Wound: 59-year-old white male with a history of concern of infection in his right fourth finger. He was working on remodeling a bathroom and received a small abrasion to the dorsal surface about 3 weeks prior to his first visit to his doctor's office so that would take him back to the end of July 2024. Alexander's last visit was 11/04/2024 and we pretty much I closed him up he was still having some issues with his ring finger but now they are all closed now he has different areas that on the same finger and his third finger that blister and get red and are painful if hit or palpated really hard. Again nothing is open at this point to consider wounds but consideration is that he might be developing some herpetic areas on his fingertips from the original trauma. So we are going to start him on some oral antiviral and then maybe put him on suppressive therapy for a year and see if that works he can follow-up in a month and see if that improves his fingers at all. He can continue using the Audra on certain areas that seems to work better than just the antibiotic ointment he still washing his hands with the Hibiclens also. Progress of Wound: So this was the follow-up of his valacyclovir for 30 days which seem to clear up all the spots on his fingers and healed all the open areas. So it looks like it is herpetic in nature and I told him my suggestion would be go on suppressive therapy of 1 a day for an due at 6-month. Then you can trial off but if it comes back he will need to go on it for a year of 1 pill a day. Other than that he is discharged from the wound center and he can follow-up as needed he just has to remember that these are always going to be there and we just suppressing them or not curing them. Subjective Subjective Patient is understanding of instructions and is okay with that and will continue taking the medication for 6 more months. Objective Data Objective Data All areas have cleared and the skin is nice and smooth there is no evidence of any red spots or dots or open areas. Vital Signs: Vital Signs Temp Pulse Resp BP 96.7 F L 57 L 18 114/72 01/06/25 08:11 01/06/25 08:11 01/06/25 08:11 01/06/25 08:11 Weight: 250 lb 2.49 oz Body Mass Index (BMI) 32.1 Physical Exam Const alert, oriented x3 and no apparent distress General Appearance: cooperative, comfortable and well kempt Orientation / Consciousness: awake Exam Limitations: no limitations HEENT normocephalic Head and Scalp: normal to inspection Face and Sinus: normal facial exam Nose: external nose normal External Ear: external ears normal Eyes General Eye: normal appearance of both eyes Neck full ROM General: normal visual inspection Resp normal respiratory effort Effort and Inspection: able to speak in complete sentences Auscultation: clear to auscultation bilaterally Cardio regular rate Rate: regular rate Rhythm: regular rhythm Heart Sounds: S1 normal Bruits: Negative for carotid bruit GI normal to inspection, nondistended, normoactive bowel sounds Back/Spine normal ROM Extremity normal to inspection General Extremity: normal exam except as noted Skin Skin Narrative: Macular papular area on the right hand 4th and 3rd finger General Skin Exam: no breakdown and erythema Lesions: lesion noted Neuro oriented x3 Meningeal Signs: no meningeal signs Psych mental status grossly normal Appearance: grossly normal Attitude: calm Activity / Motor Behavior: appropriate eye contact Speech: normal speech Mood & Affect: euthymic mood Thought Process: normal thought process Thought Content: normal thought content Attention / Concentration: attention grossly intact Memory / Cognition: memory grossly intact Insight: insight good Judgement: judgement good Debridement Note Debridement Note No debridement was completed: No debridement was completed today Post-Debridement Measurements and Additional Note: Post-Debridement Measurements/Treatment - Nurse 1 - General Ulcer Assessment Start: 01/06/25 08:08 Freq: Status: Active Protocol: KIEL Activity Type Activity Date Activity User E-sign Co-sign Detail Recorded Client Recorded Date Recorded By Document 01/06/25 08:11 EMELY [id number] 01/06/25 08:15 DL 01/06/25 08:11 - Today's Visit Information Type of service 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 ) Arrival Mode Ambulatory Transfer Assistance None Patient Identification Verified (Name & Yes ) Patient Requires Transmission-Based No Precautions Height and Weight Body Mass Index (BMI) 32.1 BMI Classification Obese Vital Signs Temperature (97.8 F-99.1 F) 96.7 F L Temperature Source Temporal Pulse Rate (60-100) 57 L Pulse Location Monitor Respiratory Rate (12-18) 18 Respiratory rate source Observation Blood Pressure (90/60-120/80) 114/72 Blood Pressure Mean (mm Hg) 86 Source Monitor History Since Last Visit- (Skip if this is Patient's initial visit) Have you changed medications since your No last visit? Any new allergies or adverse reactions No Had a fall/change in ADL's that may No increase risk of falls Signs or symptoms of abuse and/or No neglect since last visit Have you been in the hospital since your No last visit? Has dressing in place as prescribed Yes Has compression in place as prescribed N/A Has offloadiing in place as prescribed N/A Experienced any changes in pain level or No management Pain Scale: 0-10 Numeric Is Patient Pain Free? Yes WC - Nurse 1 - General Ulcer Measurement Start: 01/06/25 08:08 Freq: Status: Active Protocol: Activity Type Activity Date Activity User E-sign Co-sign Detail Recorded Client Recorded Date Recorded By Document 01/06/25 08:11 DL [id number] 01/06/25 08:15 DL 01/06/25 08:11 Wound Center Nurse 1 #2- R 4TH FINGER -Current Size (cm) - Length 0 -Current Size (cm) - Width 0 -Current Size (cm) - Depth 0 -Total Square Cm 0 -Photo Taken Yes -Exudate Amt None Present -Wound Margin Indistinct, Non -Visible -Granulation Amt Large (67-100%) -Granulation Quality [place] -Necrosis Amt None Present (0 %) -Structure Exposed N/A -Texture (Melly-wound Skin Appearance) Scarring -Moisture (Melly-wound Skin Appearance) No Abnormality -Color (Melly-wound Skin Appearance) No Abnormality -Temperature (Melly-wound Skin No Abnormality Appearance) (Pt Warm) -Tenderness on Palpation (Melly-wound No Skin Appearance) -Foul Odor after Cleansing No #1 R 3rd finger -Current Size (cm) - Length 0 -Current Size (cm) - Width 0 -Current Size (cm) - Depth 0 -Total Square Cm 0 -Photo Taken Yes -Exudate Amt None Present -Wound Margin Indistinct, Non -Visible -Granulation Amt Large (67-100%) -Granulation Quality [place] -Necrosis Amt None Present (0 %) -Structure Exposed N/A -Texture (Melly-wound Skin Appearance) Scarring -Moisture (Melly-wound Skin Appearance) No Abnormality -Color (Melly-wound Skin Appearance) No Abnormality -Temperature (Melly-wound Skin No Abnormality Appearance) (Pt Warm) -Tenderness on Palpation (Melly-wound No Skin Appearance) -Ulcer Cleansing Soap and Water -Foul Odor after Cleansing No WC - Nurse 2 - General Ulcer CM Notes Start: 01/06/25 08:08 Freq: Status: Active Protocol: Activity Type Activity Date Activity User E-sign Co-sign Detail Recorded Client Recorded Date Recorded By Document 01/06/25 08:22 [facility] [id number] 01/06/25 08:28 [facility] 01/06/25 08:22 Wound Center Nurse 2 #2- R 4TH FINGER -Procedure Performed No -Post Debridement (cm) - Length 0 -Post Debridement (cm) - Width 0 -Post Debridement (cm) - Depth 0 -Total Square (Post) (cm) 0 -Area of Debridement (cm) - Length 0 -Area of Debridement (cm) - Width 0 -Total Square (Area) (cm) 0 -Wound/Ulcer Outcome Healed- Epithelialized -Bleeding Controlled with NA #1 R 3rd finger -Time 08:27 -Procedure Performed No -Post Debridement (cm) - Length 0 -Post Debridement (cm) - Width 0 -Post Debridement (cm) - Depth 0 -Total Square (Post) (cm) 0 -Area of Debridement (cm) - Length 0 -Area of Debridement (cm) - Width 0 -Total Square (Area) (cm) 0 -Wound/Ulcer Outcome Healed- Epithelialized -Bleeding Controlled with NA Pain Scale: 0-10 Numeric Is Patient Pain Free? Yes WC - Nurse 3 - General Ulcer D/C NN Start: 01/06/25 08:08 Freq: Status: Active Protocol: Activity Type Activity Date Activity User E-sign Co-sign Detail Recorded Client Recorded Date Recorded By Document 01/06/25 08:28 [employer] [id number] 01/06/25 08:29 [facility] 01/06/25 08:28 Is Patient Pain Free? Yes - Visit Discharge Discharge Condition Stable Ambulatory Status Ambulatory Transportation Private Auto Notes: pt healed. no drsg at this time Assessment/Plan Assessment/Plan (1) H/O mechanical aortic valve replacement: CODE(S): Z95.2 - Presence of prosthetic heart valve PLAN: Echocardiogram done it was all normal patient was discussed and agreeable (2) Herpetic lesions: CODE(S): B00.9 - Herpesviral infection, unspecified PLAN: Start valacyclovir 1 g 3 times daily x 7 days then 1 g daily for 30 days with 12 refills for suppressive therapy Patient is discharged from the wound center and he can follow-up as needed
--- NOTE | 2025-01-06 15:28 | WC ---
PHOTO 01/06/25 RIGHT 3RD FINGER
--- NOTE | 2025-01-06 15:29 | WC ---
PHOTO 01/06/25 RIGHT 4TH FINGER
--- NOTE | 2025-01-11 09:02 | WC ---
PHOTO 01/06/25 R 3RD FINGER
--- NOTE | 2025-01-11 09:07 | WC ---
PHOTO 01/06/25 RIGHT 4TH FINGER
== END 2025-01-19 09:04 | disposition home or self-care (01) ==
LOC: WC 07:57
PROVIDERS: PCP Nurse Practitioner Family; Referring Provider Nurse Practitioner; Visit Provider Nurse Practitioner
DX: B00.9 Herpesviral infection, unspecified (principal); S60.42 Blister (nonthermal) of fingers; S60.424 Blister (nonthermal) of right ring finger; X58.XXXA Exposure to other specified factors, initial encounter; Z79.01 Long term (current) use of anticoagulants; Z79.899 Other long term (current) drug therapy; Z95.2 Presence of prosthetic heart valve
CPT/HCPCS: 99213; G0463